=== PATIENT | female | born 1945 | race Caucasian/White ===

== ENCOUNTER 2017-01-11 13:32 | Emergency (ER) | payer MEDICARE ==
[~2017-01-11] VITALS: Wt 41.7 kg
--- NOTE | ~2017-01-11 | EKG ---
[place], [place] ELECTROCARDIOGRAM REPORT NAME: ALEXANDRA CARPIO UNIT #: [id number] ROOM: DOCTOR: HOME JAMA MD BIRTHDATE: [birth year] DOS: 01/11/2017 TIME: 1327 hours. Normal sinus rhythm at 78 beats per minute. Left ventricular hypertrophy with repolarization abnormalities. An abnormal ECG. No previous tracing is available for comparison. HOME JAMA MD CM:EKGRPT:ELECTROCARDIOGRAM REPORT [id number] HOME JAMA MD
[~2017-01-11 13:32] MED LIST: *Pletal50 MG PO; AMOXIL500 MG PO; ASPI-COR81 M1 PO; ASPIRIN ADULT L81 M1 PO; ASPIRIN CHEWABL81 M1 PO; ASPIRIN325 MG PO; ASPIRIN81 M1 PO; ATIVAN0.5 MG PO; B12-METHYL1000 MCG PO; CILOSTAZOL50 MG PO; CIPRO250 MG PO; CIPRO500 MG PO; CIPROFLOXACIN500 MG PO; CLARITIN10 MG PO; CLONIDINE0.1 MG PO; CREON 120000 U-1 ECC PO; CREON1 CAP PO; CYMBALTA30 MG PO; DAYPRO600 M1 PO; DETROL1 MG PO; ENALAPRIL2.5 MG PO; FIORICET 325 MG1 TAB PO; FLEXERIL10 MG PO; FLORICET PO; GOOD SENSE ASP325 MG PO; HYDROCODONE BIT1 T11 PO; IMDUR SA30 MG PO; IMDUR30 MG PO; K-DUR 20MEQ20 MEQ PO; LASIX10 MG/ML PO; LASIX40 MG PO; LISINOPRIL10 M1 PO; LISINOPRIL10 MG PO; LITHIUM CARBON300 MG PO; LOMOTIL 0.025 M1 TA1 PO; LOMOTIL 0.025 M1 TAB PO; LOPERAMIDE HCL2 M1 PO; LOPID600 MG PO; MACROBID100 M1 PO; METOPROLOL SR50 MG PO; METOPROLOL SUCC25 M2 PO; NITRO TRANS0.4 MG/HR; NITRO-DUR0.4 MG/HR TD; NITROGLYCERIN0.4 MG SL; NITROSTAT0.4 MG SL; NKHM; NORCO 325 MG-51 TAB PO; OMEPRAZOLE20 MG PO; PLAVIX75 MG PO; PRAVACHOL40 MG PO; PRAVASTATIN SOD10 MG PO; PRAVASTATIN SOD20 MG PO; PREDNICOT10 MG PO; PREDNICOT20 MG PO; PREDNISONE10 MG PO; PRILOSEC20 MG PO; PRILOSEC40 MG PO; PROTONIX40 MG PO; SIMVASTATIN40 MG PO; TORADOL10 MG PO; TRAMADOL HCL50 MG PO; ULTRAM50 MG PO; VASOTEC PO; VASOTEC2.5 MG; VASOTEC2.5 MG PO; VIBRAMYCIN100 MG PO; VICO75300 PO; VICODIN 5/500 505 MG PO; VICODIN 500 MG-1 TAB PO; VITAMIN D50000 I1 PO; Vicodin 5/500 505 MG PO; Z-TAB1 TAB IM; ZANTAC 300300 MG PO; ZANTAC150 MG PO; ZITHROMAX Z PA250 MG PO; ZOCOR5 MG PO; ZOFRAN ODT4 MG SL; ZOFRAN4 MG PO; ZYRTEC10 MG PO; [UNRECOGNIZED DRUG - OTHER]
[2017-01-11] MEDS ORDERED: LISINOPRIL10 M1 PO (13:45)
[2017-01-11 13:55] LABS: BASO # 0.1 10*3/uL (0.0-0.1); BASO % 0.7 % (0.0-1.0); HEMATOCRIT 43.3 % (37.0-47.0); HEMOGLOBIN 14.7 g/dl (12.0-16.0); LYMPH # 3.1 10*3/uL (1.3-4.4); LYMPH % 29.9 % (27.0-41.0); MEAN CELL VOLUME 94.3 fl (81.0-99.0); MEAN CORPUSCULAR HGB CONC 33.9 g/dl (33.0-37.0); MEAN PLATELET VOLUME 10.4 fl (9.6-12.3); MONO # 0.7 10*3/uL (0.1-1.0); MONO % 7.2 % (3.0-9.0); NEUT # 6.4 10*3/uL (2.3-7.9); PLATELET COUNT AUTOMATED 190 10*3/uL (130-400); RED BLOOD COUNT 4.59 10*6/uL (4.10-5.10); RED CELL DISTRI WIDTH 12.8 % (0-14.5); WHITE BLOOD COUNT 10.3 10*3/uL (4.8-10.8)
[2017-01-11 14:07] LABS: PROTHROMBIN TIME 10.3 SECONDS (9.0-12.4)
[2017-01-11 14:14] LABS: ALBUMIN 3.6 gm/dl (3.1-4.5); ALKALINE PHOSPHATASE 76 U/L (45-117); BUN 9 mg/dl (7-24); CARBON DIOXIDE 28 mmol/L (21-32); CHLORIDE 107 mmol/L (98-107); CPK 52 U/L (26-192); EST GLOM FILT AFRICAN AMERICAN > 60 ml/min; GLUCOSE 87 mg/dL (65-99); MAGNESIUM 1.7 mg/dL (1.5-2.1); POTASSIUM 3.7 mmol/L (3.5-5.1); SGOT/AST 22 IU/L (3-35); SGPT/ALT 19 U/L (12-78); SODIUM 143 mmol/L (136-145); TOTAL PROTEIN 6.7 gm/dL (6.4-8.2)
[2017-01-11 14:15] LABS: CKMB 3.1 ng/ml (0.5-3.6)
[2017-01-11 14:55] VITALS: BP 174/85
== END 2017-01-11 14:57 | disposition home or self-care (01) ==
LOC: ED 13:32
PROVIDERS: Internal Medicine
DX: R07.9 Chest pain, unspecified (principal); F17.200 Nicotine dependence, unspecified, uncomplicated; Z90.49 Acquired absence of other specified parts of digestive tract; E11.9 Type 2 diabetes mellitus without complications; I10 Essential (primary) hypertension; E78.5 Hyperlipidemia, unspecified; Z88.8 Allergy status to other drugs, medicaments and biological substances; Z79.82 Long term (current) use of aspirin; I25.2 Old myocardial infarction; Z95.5 Presence of coronary angioplasty implant and graft

== ENCOUNTER → 2017-05-27 | Outpatient (CLI) | payer MEDICARE ==
[2017-05-27 10:27] LABS: BASO # 0.1 10*3/uL (0.0-0.1); BASO % 1.1 % (0.0-1.0); HEMATOCRIT 44.5 % (37.0-47.0); HEMOGLOBIN 14.8 g/dl (12.0-16.0); LYMPH # 2.7 10*3/uL (1.3-4.4); LYMPH % 32.8 % (27.0-41.0); MEAN CELL VOLUME 95.5 fl (81.0-99.0); MEAN CORPUSCULAR HGB 31.8 pg (27.0-31.0); MEAN CORPUSCULAR HGB CONC 33.3 g/dl (33.0-37.0); MEAN PLATELET VOLUME 11.3 fl (9.6-12.3); MONO # 0.7 10*3/uL (0.1-1.0); MONO % 8.5 % (3.0-9.0); NEUT # 4.8 10*3/uL (2.3-7.9); NEUT % 57.5 % (47.0-73.0); PLATELET COUNT AUTOMATED 241 10*3/uL (130-400); RED BLOOD COUNT 4.66 10*6/uL (4.10-5.10); RED CELL DISTRI WIDTH 12.8 % (0-14.5); WHITE BLOOD COUNT 8.3 10*3/uL (4.8-10.8)
[2017-05-27 10:57] LABS: ALBUMIN 3.2 gm/dl (3.1-4.5); BUN 9 mg/dl (7-24); CARBON DIOXIDE 27 mmol/L (21-32); CHLORIDE 110 mmol/L (98-107); CHOLESTEROL 167 mg/dL (<200); EST GLOM FILT AFRICAN AMERICAN > 60 ml/min; GLUCOSE 93 mg/dL (65-99); HDL CHOLESTEROL 75 mg/dl (40-60); LDL CHOLESTEROL 72 mg/dL (9-159); POTASSIUM 3.4 mmol/L (3.5-5.1); SGOT/AST 25 IU/L (3-35); SGPT/ALT 23 U/L (12-78); SODIUM 143 mmol/L (136-145); TOTAL PROTEIN 6.7 gm/dL (6.4-8.2); TRIGLYCERIDES 102 mg/dl (<150); VLDL CHOLESTEROL 20 mg/dL (6-40)
[2017-05-27 11:07] LABS: ALKALINE PHOSPHATASE 90 U/L (45-117)
[2017-05-27 11:16] LABS: VITAMIN D, 25-HYDROXY 18.2 ng/mL (30-100)
== END | disposition home or self-care (01) ==
LOC: LAB 09:53
PROVIDERS: Family Medicine
DX: E78.2 Mixed hyperlipidemia (principal); J44.9 Chronic obstructive pulmonary disease, unspecified; I25.10 Atherosclerotic heart disease of native coronary artery without angina pectoris; R63.4 Abnormal weight loss; I71.4 Abdominal aortic aneurysm, without rupture; R19.7 Diarrhea, unspecified; K92.1 Melena; I10 Essential (primary) hypertension; E55.9 Vitamin D deficiency, unspecified; Z72.0 Tobacco use

== ENCOUNTER → 2017-05-31 | Outpatient (CLI) | payer MEDICARE | END | disposition home or self-care (01) | LOC: US 09:14 | DX: Z13.6 Encounter for screening for cardiovascular disorders (principal); I71.4 Abdominal aortic aneurysm, without rupture ==

== ENCOUNTER 2017-10-07 14:08 | Inpatient (IN) | payer MEDICARE ==
[~2017-10-07] VITALS: Ht 156.2 cm; Wt 47.7 kg
--- NOTE | ~2017-10-07 | O ---
[place], [place] OPERATIVE NOTE NAME: [facility]LEXANDRA [facility]PIO [id number] UNIT #: [id number] ROOM: 424 DOCTOR: RACHEAL CHU,LILLI PIERRE BIRTHDATE: [birth year] DOS: 10/08/2017 PREOPERATIVE DIAGNOSES: Persistent right lower quadrant pain, colicky; abnormal CAT scan, suggestive of appendicitis per Radiology. POSTOPERATIVE DIAGNOSES: Persistent right lower quadrant pain, colicky; abnormal CAT scan, suggestive of appendicitis per Radiology. PROCEDURE: Diagnostic laparoscopy, lysis of adhesions, removal of small intra-abdominal foreign body (grossly paratubal or serous cyst), incidental appendectomy. SURGEON: Lilli Springer MD and Chauncey MS-3. ANESTHESIA: General. INDICATIONS: This is a 72-year-old lady who presented to the Emergency Room with colicky lower abdominal pain for approximately 72 hours prior to admission. She has had prior episodes previously. She has history of multiple abdominal procedures including a prior laparoscopic Jarrett fundoplication, then revision of this Jarrett fundoplication several years later at the [facility], though the patient does not exactly know why this was done and per history did not have significant recurrent symptoms that she describes. She has had prior vaginal hysterectomy years ago for what sounds like menorrhagia by Dr. Urbina here, though that procedure was done in [place] previously. She denies history of endometriosis or other neoplastic pathology at that time. She has had pain with stools and ultimately had diarrhea and constipation over some years. She has had dysuria in the past as well. The CT scan done in the Emergency Room without contrast was felt to show appendicitis by the radiologist's report. However, she had no leukocytosis or fever. She did have an equivocal Rovsing's sign and peritoneal irritation on clinical examination. She was observed overnight and treated with antibiotics and had this morning persistent similar examination, which was equivocal, but again, no leukocytosis. Given her minimal discomfort, the patient opted for a diagnostic laparoscopy for diagnostic certainty. The risks, benefits, possible complications were discussed with her at length and she has had outside workup radiographically and endoscopically by multiple other physicians at this point and more or less the only diagnostic option left is laparoscopy, to which she agrees for conformational purposes. DESCRIPTION OF PROCEDURE: The patient brought to the operating suite and placed on table in the supine position. Adequate conscious sedation and general anesthetic was induced. Endotracheal tube was placed and secured. The abdomen was prepped and draped in the usual sterile fashion. The abdomen was opened and entered through a small supraumbilical transverse incision below the point of her prior upper midline incision from her reported open fundoplication surgery several years ago. This was cannulated without difficulty by technique and a pneumoperitoneum achieved without difficulty. The laparoscope was then inserted under direct vision using an Optiview trocar with a laparoscope within and intraperitoneal placement was confirmed. Trocars were then placed in the left lower quadrant and suprapubic, changing the umbilical trocar to a 12 mm [place], [place] OPERATIVE NOTE NAME: ALEXANDRA CARPIO UNIT #: [id number] ROOM: [facility] DOCTOR: LILLI SPRINGER MD BIRTHDATE: [birth year] trocar as well under infiltrated block with Marcaine. Once this was done, diagnostic laparoscopy ensued. There were some adhesions in the upper abdomen, which were taken down sharply to visualize her fundoplication with what appears to be an intact wrap and no other pathology in the upper left quadrant. Right upper quadrant shows no pathology other than some mild adhesions from her prior cholecystectomy. Transverse colon and splenic flexure visualized are normal. Colon was followed down the gutter and the appendix immediately seen and grossly appears to be normal, though it is somewhat plump and prominent, there is no obvious inflammatory change, fibrinous exudate or fluid suggestive of appendicitis and it is clearly visible. The attention was directed down the pelvis and there multiple adhesions present to the sigmoid anterior to the bladder flap and changes from her prior hysterectomy. There was no remnant of left ovary and tube seen. The sigmoid was freed with sharp lysis of adhesions and there was an appendix epiploica which was stuck to the bladder flap and was freed sharply as well. No other inflammatory changes or pathology seen. There is some serous fluid, which was suctioned away and a small cyst roughly 6-7 mm was visualized and floating free in the abdomen. Appeared to be either a small paratubal cyst or mesenteric cyst and this was retrieved through the 12 mm port and handed off for analysis. It is yellowish, perfectly round and filled with clear fluid and does not seem to be anything other than incidental pathology. The colon and small bowel were examined and there is no fat wrapping or inflammatory changes that are chronically seen. The cecum was visualized at the ileocecal fat fold of Treves, was then followed in a retrograde fashion running the entire small bowel with no internal hernia, Meckel's diverticulosis, small bowel diverticulitis, neoplasm or other inflammatory changes seen all the way back to the ligament of Treitz, showing no pathology fat wrapping or other changes. With this done in essentially the pelvis, both lower quadrants and both upper quadrants well examined and finding no other pathology other than small cyst and a few adhesions, attention was directed to appendectomy. The cecum was mobilized partially and the base of the appendix was somewhat obscured. Once this was mobilized, the appendix was grasped and a window made next to the base of the appendix with a [place] dissector bluntly. The mesoappendix and then the base of the appendix were then divided with the endoscopic vascular staplers using the thin/white load size cartridge as there were no inflammatory changes and this was not thickened. Then this was done to good effect and the appendectomy completed. This was removed through the 12 mm port at the umbilicus without difficulty. Another look was taken and with no further pathology present, the trocars were removed and the pneumoperitoneum was released. The abdomen was then closed with a [id number] suture of 2-0 PDS to the fascia at the umbilical trocar site, which had been extended to place a 12 mm port. Once this was done, the skin incisions of all 3 trocar sites were closed with 4-0 Monocryl and skin adhesive without difficulty. The patient tolerated this well. Total of 12 mL of 0.5% Marcaine plain was used to infiltrate block at 3 trocar sites. The appendix was photo documented and was opened on the field and photodocumented with no fecalith present and was split longitudinally and no gross pathology present. It was placed in formalin for final examination for possible inflammatory changes, other pathology but grossly there is no pathology present and no fecalith. All sponge, needle, instrument counts were correct at the end of the procedure. She received antibiotic prophylaxis preoperatively and had compression devices lower extremities for DVT [place], [place] OPERATIVE NOTE NAME: BALAJIALEXANDRA Monica UNIT #: [id number] ROOM: 424 DOCTOR: RACHEAL CHU,LILLI PIERRE BIRTHDATE: [birth year] prophylaxis. LILLI SPRINGER MD CM:OPRECORD:OPERATIVE NOTE 1103 1221 AMIE FINK MD 10/08/17 1221 interface
[2017-10-07 14:33] VITALS: BP 146/64
[2017-10-07 14:54] LABS: BASO # 0.1 10*3/uL (0.0-0.1); HEMATOCRIT 43.3 % (37.0-47.0); HEMOGLOBIN 14.3 g/dl (12.0-16.0); LYMPH # 2.9 10*3/uL (1.3-4.4); MEAN CELL VOLUME 94.7 fl (81.0-99.0); MEAN CORPUSCULAR HGB 31.3 pg (27.0-31.0); MEAN PLATELET VOLUME 11.6 fl (9.6-12.3); MONO # 0.6 10*3/uL (0.1-1.0); MONO % 7.9 % (3.0-9.0); NEUT # 4.1 10*3/uL (2.3-7.9); PLATELET COUNT AUTOMATED 193 10*3/uL (130-400); RED BLOOD COUNT 4.57 10*6/uL (4.10-5.10); RED CELL DISTRI WIDTH 13.2 % (0-14.5); WHITE BLOOD COUNT 7.7 10*3/uL (4.8-10.8)
[2017-10-07] MEDS ORDERED: PANTOPRAZOLE SO40 MG PO (14:54)
[2017-10-07] MEDS ORDERED: Clopidogrel75 MG PO (14:54)
[2017-10-07] MEDS ORDERED: ASPIRIN CHEWABL81 MG PO (14:55)
[2017-10-07] MEDS ORDERED: ATORVASTATIN CA80 M1 PO (14:55)
[2017-10-07] MEDS ORDERED: Lopressor25 MG PO (14:55)
[2017-10-07] MEDS ORDERED: PRILOSEC20 M1 PO (14:56)
[2017-10-07 15:03] LABS: ACT PARTIAL THROMBO TIME 26.9 SECONDS (20.8-31.5)
[2017-10-07 15:11] LABS: ALBUMIN 3.6 gm/dl (3.1-4.5); ALKALINE PHOSPHATASE 110 U/L (45-117); BUN 10 mg/dl (7-24); CHLORIDE 109 mmol/L (98-107); CREATININE 0.77 mg/dL (0.55-1.02); LIPASE 146 U/L (73-393); POTASSIUM 3.7 mmol/L (3.5-5.1); SGOT/AST 21 IU/L (3-35); SGPT/ALT 18 U/L (12-78); SODIUM 144 mmol/L (136-145); TOTAL PROTEIN 7.4 gm/dL (6.4-8.2)
[2017-10-07 15:51] LABS: BILIRUBIN NEGATIVE (NEGATIVE); BLOOD 1+ (NEGATIVE); CLARITY CLEAR (CLEAR); COLOR YELLOW (YELLOW); GLUCOSE NEGATIVE (NEGATIVE); KETONE NEGATIVE (NEGATIVE); LEUKO ESTERASE NEGATIVE (NEGATIVE); NITRITE NEGATIVE (NEGATIVE); UROBILINOGEN 0.2 E.U./dl (0.2-1.0)
[2017-10-07 16:03] LABS: BACTERIA TRACE; WBC 0-2 wbc/hpf (0-5)
[2017-10-07 16:24] VITALS: BP 172/78
[2017-10-07 16:51] VITALS: BP 167/78
[2017-10-07 20:00] VITALS: BP 148/72
[2017-10-08] VITALS (13 sets, daily range): BP systolic 96–147; BP diastolic 43–68
[2017-10-08 07:13] LABS: BASO # 0.1 10*3/uL (0.0-0.1); BASO % 0.7 % (0.0-1.0); HEMOGLOBIN 12.6 g/dl (12.0-16.0); LYMPH # 2.7 10*3/uL (1.3-4.4); LYMPH % 35.6 % (27.0-41.0); MEAN CELL VOLUME 95.4 fl (81.0-99.0); MEAN CORPUSCULAR HGB 30.8 pg (27.0-31.0); MEAN CORPUSCULAR HGB CONC 32.3 g/dl (33.0-37.0); MEAN PLATELET VOLUME 11.9 fl (9.6-12.3); MONO # 0.7 10*3/uL (0.1-1.0); MONO % 9.2 % (3.0-9.0); NEUT # 4.1 10*3/uL (2.3-7.9); NEUT % 54.4 % (47.0-73.0); PLATELET COUNT AUTOMATED 159 10*3/uL (130-400); RED BLOOD COUNT 4.09 10*6/uL (4.10-5.10); RED CELL DISTRI WIDTH 13.1 % (0-14.5); WHITE BLOOD COUNT 7.5 10*3/uL (4.8-10.8)
[2017-10-08 07:41] LABS: CHLORIDE 113 mmol/L (98-107); POTASSIUM 3.5 mmol/L (3.5-5.1); SODIUM 146 mmol/L (136-145)
[2017-10-08 08:05] LABS: BUN 9 mg/dl (7-24); CHOLESTEROL 128 mg/dL (<200); CREATININE 0.81 mg/dL (0.55-1.02); HDL CHOLESTEROL 62 mg/dl (40-60); LDL CHOLESTEROL 44 mg/dL (9-159); PHOSPHOROUS 3.2 mg/dL (2.5-4.9); TRIGLYCERIDES 108 mg/dl (<150); VLDL CHOLESTEROL 22 mg/dL (6-40)
[2017-10-08 08:42] LABS: VITAMIN D, 25-HYDROXY 16.3 ng/mL (30-100)
[2017-10-09] VITALS (7 sets, daily range): BP systolic 96–126; BP diastolic 40–64
[2017-10-09 05:54] LABS: BASO # 0.1 10*3/uL (0.0-0.1); BASO % 0.8 % (0.0-1.0); HEMATOCRIT 37.6 % (37.0-47.0); LYMPH # 1.8 10*3/uL (1.3-4.4); LYMPH % 27.9 % (27.0-41.0); MEAN CELL VOLUME 98.2 fl (81.0-99.0); MEAN CORPUSCULAR HGB 31.3 pg (27.0-31.0); MEAN CORPUSCULAR HGB CONC 31.9 g/dl (33.0-37.0); MEAN PLATELET VOLUME 12.1 fl (9.6-12.3); MONO # 0.7 10*3/uL (0.1-1.0); NEUT # 3.9 10*3/uL (2.3-7.9); PLATELET COUNT AUTOMATED 150 10*3/uL (130-400); RED BLOOD COUNT 3.83 10*6/uL (4.10-5.10); WHITE BLOOD COUNT 6.5 10*3/uL (4.8-10.8)
[2017-10-09 06:09] LABS: ALBUMIN 2.5 gm/dl (3.1-4.5); ALKALINE PHOSPHATASE 75 U/L (45-117); BUN 5 mg/dl (7-24); CHLORIDE 114 mmol/L (98-107); CREATININE 0.74 mg/dL (0.55-1.02); FREE T4 1.18 ng/dl (0.76-1.46); PHOSPHOROUS 2.6 mg/dL (2.5-4.9); POTASSIUM 3.6 mmol/L (3.5-5.1); SGOT/AST 16 IU/L (3-35); SGPT/ALT 11 U/L (12-78); SODIUM 147 mmol/L (136-145); TOTAL PROTEIN 5.2 gm/dL (6.4-8.2)
[2017-10-10] VITALS: BP 90/49
[2017-10-10 04:00] VITALS: BP 93/51
[2017-10-10 06:47] LABS: BASO # 0.1 10*3/uL (0.0-0.1); BASO % 0.8 % (0.0-1.0); HEMATOCRIT 41.4 % (37.0-47.0); LYMPH # 1.4 10*3/uL (1.3-4.4); LYMPH % 15.6 % (27.0-41.0); MEAN CELL VOLUME 97.9 fl (81.0-99.0); MEAN CORPUSCULAR HGB 30.7 pg (27.0-31.0); MEAN CORPUSCULAR HGB CONC 31.4 g/dl (33.0-37.0); MEAN PLATELET VOLUME 11.9 fl (9.6-12.3); MONO # 0.7 10*3/uL (0.1-1.0); MONO % 7.4 % (3.0-9.0); NEUT # 6.8 10*3/uL (2.3-7.9); NEUT % 75.6 % (47.0-73.0); PLATELET COUNT AUTOMATED 175 10*3/uL (130-400); RED BLOOD COUNT 4.23 10*6/uL (4.10-5.10); RED CELL DISTRI WIDTH 13.1 % (0-14.5)
[2017-10-10 07:05] LABS: ALBUMIN 2.6 gm/dl (3.1-4.5); ALKALINE PHOSPHATASE 77 U/L (45-117); BUN 9 mg/dl (7-24); CHLORIDE 111 mmol/L (98-107); CREATININE 0.67 mg/dL (0.55-1.02); POTASSIUM 3.8 mmol/L (3.5-5.1); SGOT/AST 19 IU/L (3-35); SGPT/ALT 11 U/L (12-78); SODIUM 143 mmol/L (136-145); TOTAL PROTEIN 5.7 gm/dL (6.4-8.2)
[2017-10-10 08:00] VITALS: BP 90/50
[2017-10-10 12:00] VITALS: BP 100/52
[2017-10-10 16:00] VITALS: BP 119/56
[2017-10-10 20:00] VITALS: BP 108/43
[2017-10-11] VITALS: BP 131/60
[2017-10-11 08:00] VITALS: BP 154/82
[2017-10-11 12:00] VITALS: BP 101/66
[2017-10-11] MEDS ORDERED: Vitamin D PO (13:43)
[2017-10-11] MEDS ORDERED: NORCO 5/325 PO (13:46)
[2017-10-11] MEDS ORDERED: Synthroid,Levo50 MCG PO (14:49)
== END 2017-10-11 14:59 | disposition home health service (06) | DRG 339 ==
LOC: ED 14:08 → EDHOLD 16:01 → 4E 16:01
PROVIDERS: Emergency Medicine; Internal Medicine; Internal Medicine Nephrology
PROC: 0DTJ4ZZ Resection of Appendix, Percutaneous Endoscopic Approach (ICD-10-PCS; principal; 2017-10-08)
PROC: 0WBF4ZZ Excision of Abdominal Wall, Percutaneous Endoscopic Approach (ICD-10-PCS; principal; 2017-10-08)
DX: K35.3 Acute appendicitis with localized peritonitis (principal); E87.0 Hyperosmolality and hypernatremia; E11.51 Type 2 diabetes mellitus with diabetic peripheral angiopathy without gangrene; E87.8 Other disorders of electrolyte and fluid balance, not elsewhere classified; K56.7 Ileus, unspecified; Z68.1 Body mass index [BMI] 19.9 or less, adult; Z66 Do not resuscitate; M18.0 Bilateral primary osteoarthritis of first carpometacarpal joints; E78.5 Hyperlipidemia, unspecified; I10 Essential (primary) hypertension; H40.9 Unspecified glaucoma; E55.9 Vitamin D deficiency, unspecified; Z51.5 Encounter for palliative care; F17.210 Nicotine dependence, cigarettes, uncomplicated; R63.6 Underweight; J44.9 Chronic obstructive pulmonary disease, unspecified; R00.1 Bradycardia, unspecified; D72.818 Other decreased white blood cell count; K21.9 Gastro-esophageal reflux disease without esophagitis; Z90.49 Acquired absence of other specified parts of digestive tract; Z90.710 Acquired absence of both cervix and uterus; Z88.8 Allergy status to other drugs, medicaments and biological substances; Z95.5 Presence of coronary angioplasty implant and graft; Z79.899 Other long term (current) drug therapy; Z98.42 Cataract extraction status, left eye; Z98.41 Cataract extraction status, right eye; Z83.3 Family history of diabetes mellitus; Z82.49 Family history of ischemic heart disease and other diseases of the circulatory system; Z79.82 Long term (current) use of aspirin; Z71.6 Tobacco abuse counseling

== ENCOUNTER 2017-11-09 20:05 | Emergency (ER) | payer OTHER ==
[~2017-11-09] VITALS: Ht 154.9 cm; Wt 40.4 kg
[~2017-11-09 20:05] MED LIST changes: +ASPIRIN CHEWABL81 MG PO; +ATORVASTATIN CA80 M1 PO; +Clopidogrel75 MG PO; +Lopressor25 MG PO; +NORCO 5/325 PO; +PANTOPRAZOLE SO40 MG PO; +PRILOSEC20 M1 PO; +Synthroid,Levo50 MCG PO; +Vitamin D PO
[2017-11-09 21:10] LABS: BASO # 0.1 10*3/uL (0.0-0.1); BASO % 0.8 % (0.0-1.0); EOS % 0.1 % (1.0-4.0); HEMATOCRIT 41.7 % (37.0-47.0); HEMOGLOBIN 13.9 g/dl (12.0-16.0); LYMPH % 32.1 % (27.0-41.0); MEAN CELL VOLUME 93.3 fl (81.0-99.0); MEAN CORPUSCULAR HGB 31.1 pg (27.0-31.0); MEAN CORPUSCULAR HGB CONC 33.3 g/dl (33.0-37.0); MONO # 0.8 10*3/uL (0.1-1.0); MONO % 8.7 % (3.0-9.0); NEUT # 5.4 10*3/uL (2.3-7.9); NEUT % 58.2 % (47.0-73.0); PLATELET COUNT AUTOMATED 182 10*3/uL (130-400); RED BLOOD COUNT 4.47 10*6/uL (4.10-5.10); RED CELL DISTRI WIDTH 13.8 % (0-14.5); WHITE BLOOD COUNT 9.3 10*3/uL (4.8-10.8)
[2017-11-09 21:28] LABS: ALBUMIN 3.4 gm/dl (3.1-4.5); ALKALINE PHOSPHATASE 103 U/L (45-117); BUN 13 mg/dl (7-24); CHLORIDE 106 mmol/L (98-107); CREATININE 0.75 mg/dL (0.55-1.02); SGOT/AST 21 IU/L (3-35); SGPT/ALT 13 U/L (12-78); SODIUM 141 mmol/L (136-145); TOTAL PROTEIN 7.2 gm/dL (6.4-8.2)
[2017-11-09 21:30] LABS: TROPONIN I 0.027 ng/ml (<0.045)
[2017-11-10] MEDS ORDERED: CEPHALEXIN500 M1 PO (00:18)
[2017-11-10] MEDS ORDERED: SEPTDS PO (00:18)
[2017-11-10 00:29] VITALS: BP 165/88
== END 2017-11-10 00:59 | disposition home or self-care (01) ==
LOC: ED 20:05
PROVIDERS: Nurse Practitioner Family
DX: L02.211 Cutaneous abscess of abdominal wall (principal); F17.200 Nicotine dependence, unspecified, uncomplicated; E78.00 Pure hypercholesterolemia, unspecified; E03.9 Hypothyroidism, unspecified; J44.9 Chronic obstructive pulmonary disease, unspecified; E11.9 Type 2 diabetes mellitus without complications; E78.5 Hyperlipidemia, unspecified; I10 Essential (primary) hypertension; G89.29 Other chronic pain; Z90.49 Acquired absence of other specified parts of digestive tract; Z79.82 Long term (current) use of aspirin; Z95.1 Presence of aortocoronary bypass graft; Z95.5 Presence of coronary angioplasty implant and graft; Z98.890 Other specified postprocedural states; Z79.899 Other long term (current) drug therapy; Z88.1 Allergy status to other antibiotic agents

== ENCOUNTER → 2017-11-14 | Outpatient (CLI) | payer OTHER ==
[~2017-11-14] MED LIST changes: +CEPHALEXIN500 M1 PO; +SEPTDS PO
== END | disposition home or self-care (01) ==
LOC: WOUNDCARE 00:41
DX: T81.4XXA Infection following a procedure, initial encounter (principal); E11.39 Type 2 diabetes mellitus with other diabetic ophthalmic complication; H40.9 Unspecified glaucoma; E11.51 Type 2 diabetes mellitus with diabetic peripheral angiopathy without gangrene; J44.9 Chronic obstructive pulmonary disease, unspecified; I10 Essential (primary) hypertension; E78.5 Hyperlipidemia, unspecified; M81.0 Age-related osteoporosis without current pathological fracture; Z95.5 Presence of coronary angioplasty implant and graft; F17.210 Nicotine dependence, cigarettes, uncomplicated; Y83.8 Other surgical procedures as the cause of abnormal reaction of the patient, or of later complication, without mention of misadventure at the time of the procedure

== ENCOUNTER → 2017-11-21 | Outpatient (CLI) | payer OTHER | END | disposition home or self-care (01) | LOC: WOUNDCARE 11-20 14:33 | DX: T81.4XXD Infection following a procedure, subsequent encounter (principal); E11.39 Type 2 diabetes mellitus with other diabetic ophthalmic complication; H40.9 Unspecified glaucoma; E11.51 Type 2 diabetes mellitus with diabetic peripheral angiopathy without gangrene; E78.5 Hyperlipidemia, unspecified; I10 Essential (primary) hypertension; J44.9 Chronic obstructive pulmonary disease, unspecified; M81.0 Age-related osteoporosis without current pathological fracture; F17.210 Nicotine dependence, cigarettes, uncomplicated; Y83.8 Other surgical procedures as the cause of abnormal reaction of the patient, or of later complication, without mention of misadventure at the time of the procedure ==